=== PATIENT | female | born 1990 | race Caucasian/White ===

== ENCOUNTER 2020-01-20 19:33 | Emergency (ER) | payer OTHER ==
[~2020-01-20] VITALS: Ht 147.3 cm; Wt 40.8 kg
[2020-01-20 19:41] VITALS: BP 114/86
--- NOTE | 2020-01-20 19:45 | NUR ---
PT AMBUALTED TO BED WITH STEADY GAIT.
--- NOTE | 2020-01-20 19:50 | NUR ---
ERMD AT BEDSIDE.
[2020-01-20] MEDS ORDERED: NACL 0.9% 1,000 ML IV ONE (20:00)
[2020-01-20] MEDS ORDERED: ONDANSETRON 4 MG/2 ML VIAL IVP ONE (20:00)
--- NOTE | 2020-01-20 20:00 | NUR ---
29 Y/O FEMALE PRESENTS TO ER WITH C/O BLACK STOOLS TWICE A DAY X 3 DAYS. 10 PAIN IN BILATERAL LOWER QUADRANTS WITH BOWEL MOVEMENTS. ALSO C/O NAUSEA, DIARRHEA, CHILLS, LETHARGY, HEADACHES, RIGHT SIDE BODY WEAKNESS, LIGHT SENSITIVITY. DENIES SEEING BLOOD IN STOOL, VOMITING, DYSURIA, SOB, COUGH. FLATUS IS PRESENT. NORMOACTIVE BOWEL SOUNDS X 4 QUADRANTS. LMP 12/19/19 NKDA DENIES PMH
[2020-01-20 20:19] LABS: BASOPHILS # (AUTO) 0.3 K/uL (0.00-0.22); BASOPHILS % (AUTO) 2.5 % (0.0-2.0); EOSINOPHILS # (AUTO) 0.2 K/uL (0-0.4); EOSINOPHILS % (AUTO) 1.6 % (0.0-4.0); HEMATOCRIT 44.5 % (36-48); LYMPHOCYTES # (AUTO) 1.5 K/uL (2.5-16.5); LYMPHOCYTES % (AUTO) 14.5 % (20.5-51.1); MEAN CORPUSCULAR HEMOGLOBIN 31 pg (27-31); MEAN CORPUSCULAR HGB CONC 34 g/dL (33-37); MEAN CORPUSCULAR VOLUME 92.6 fL (80-94); MONOCYTES # (AUTO) 0.5 K/uL (0.8-1.0); MONOCYTES % (AUTO) 5.1 % (1.7-9.3); NEUTROPHILS # (AUTO) 7.7 K/uL (1.8-7.7); NEUTROPHILS % (AUTO) 76.3 % (42.2-75.2); PLATELET COUNT (AUTO) 274 K/uL (140-450); RED BLOOD CELL COUNT(AUTO) 4.81 MIL/uL (4.20-5.40); RED CELL DISTRIBUTION WIDTH 12.8 % (11.6-13.7); WHITE BLOOD COUNT (AUTO) 10.1 K/uL (4.8-10.8)
[2020-01-20 20:33] LABS: ALBUMIN 4.6 g/dL (3.4-5.0); ANION GAP 12.9 (8-16); ASPARTATE AMINOTRANSFERASE 39 U/L (15-37); CHLORIDE 101 mmol/L (98-107); CREATININE 0.5 mg/dL (0.6-1.3); GFR ARICAN-AMERICAN 189 mL/min (>90); GLUCOSE 95 mg/dL (74-106); POTASSIUM 4.9 mmol/L (3.5-5.1); SODIUM SERUM 137 mmol/L (136-145); TOTAL BILIRUBIN 0.4 mg/dL (0.0-1.0); UREA NITROGEN, BLOOD 10 mg/dL (7-18)
[2020-01-20 20:39] LABS: BARBITURATE, URINE NEGATIVE ng/ml (NEG <=200); BENZODIAZEPINE, URINE NEGATIVE ng/mL (NEG <=200); CANNABINOID, URINE NEGATIVE ng/mL (NEG <=50); COCAINE, URINE NEGATIVE ng/mL (NEG <=300); OPIATE, URINE NEGATIVE ng/mL (NEG <=2000); PHENCYCLIDINE SCREEN,URINE NEGATIVE ng/mL (NEG <=25)
[2020-01-20] MEDS ORDERED: PANTOPRAZOLE 40 MG INJ VIAL IVP ONE (20:45)
[2020-01-20 21:25] VITALS: BP 126/86
--- NOTE | 2020-01-20 21:25 | NUR ---
Patient discharged with v/s stable. Written and verbal after care instructions given and explained. Patient alert, oriented and verbalized understanding of instructions. Ambulatory with steady gait. All questions addressed prior to discharge. ID band removed. Patient advised to follow up with PMD. Rx of PROTONIX, MECLIZINE given. Patient educated on indication of medication including possible reaction and side effects. Opportunity to ask questions provided and answered.
== END 2020-01-20 21:25 | disposition home or self-care (01) ==
LOC: MED 19:33
DX: K92.1 Melena (principal); R42 Dizziness and giddiness; I10 Essential (primary) hypertension; D64.9 Anemia, unspecified
CPT/HCPCS: 36415; 80053; 80305; 84484; 84703; 85025; 93005; 96361; 96374; 96375; 99284; C9113; G0482; J2405; J7030